=== PATIENT | female | born 1955 | race Caucasian/White ===

== ENCOUNTER 2017-02-20 11:22 | Inpatient (IN) | payer OTHER ==
[~2017-02-20] VITALS: Ht 157.5 cm; Wt 74.2 kg
[~2017-02-20 11:22] MED LIST: ACET1TAB40 PO; HYDR-3612; IBUP-1542 PO
[2017-02-20] MEDS ORDERED: SOD CHLORIDE 0.9% 500 ML IV STA (11:23)
[2017-02-20] MEDS ORDERED: LORAZEPAM 2 MG INJ IV STA (11:23)
--- NOTE | 2017-02-20 11:38 | ERD ---
ER Documentation Chief Complaint Chief Complaint Possible seizure HPI This is a 61-year-old female with a history of chronic pain who presents to the emergency room with possible seizure. History is somewhat limited as family is not readily available. It appears the patient had a witnessed seizure. She was speaking with the family member at home and collapse of the ground was shaking of the upper and lower extremities. Per EMS the patient was postictal upon arrival with gradual improvement through transit. Her Accu-Chek in the field was normal. The patient did not have any significant head trauma. The patient denies any headache chest pain or shortness of breath. She is somewhat tearful upon arrival. She has never had a seizure before per family member. No recent drugs or alcohol per patient. No recent fever or illness per EMS and family report. ROS All systems reviewed and are negative except as per history of present illness. Medications Home Meds Reported Medications Tramadol HCl (Tramadol HCl) 50 Mg Tablet, 50 MG PO BID Y for PAIN, #60 TAB 02/20/17 Discontinued Reported Medications Hydrocodone Bit-Acetaminophen* ([place]*) 1 Tab Tab 07/31/09 Discontinued Scripts Acetaminophen-Codeine* (Acetaminophen-Cod #3*) 300-30 Mg Tab, 1 TAB PO Q4H Y for PAIN, #14 TAB Prov:BONITA AGUILAR MD 03/03/15 Ibuprofen* (Motrin*) 600 Mg Tab, 600 MG PO Q6, #20 TAB Prov:BONITA AGUILAR MD 03/03/15 Allergies Allergies: Coded Allergies: No Known Allergies (Verified Allergy, Mild, 02/20/17) PMhx/Soc History of Surgery: Yes (ankle, hysterectomy, carpal tunnel.) Anesthesia Reaction: No Hx Neurological Disorder: No Hx Respiratory Disorders: No Hx Cardiac Disorders: Yes (HTN) Hx Psychiatric Problems: No Hx Miscellaneous Medical Probl: No Hx Alcohol Use: No Hx Substance Use: No Hx Tobacco Use: No FmHx Family History: No diabetes Physical Exam Vitals Vital Signs Date Time Temp Pulse Resp B/P Pulse Ox O2 Delivery O2 Flow Rate FiO2 02/20/17 11:33 98.3 81 18 158/110 92 Physical Exam General: Well developed, well nourished, no acute distress, somewhat tearful Head: Small left occipital hematoma approximately 1 cm, no abrasion or laceration Eyes: Pupils equally reactive, EOM intact ENT: Moist mucous membranes Neck: Supple, no lymphadenopathy, No midline tenderness, deformities, step-offs to the cervical spine, full active and passive range of motion without midline pain. Respiratory: Lungs clear bilaterally, no distress Cardiovascular: RRR, no murmurs, rubs, or gallops Abdominal: Soft, non-tender, non-distended, no peritoneal signs : Deferred MSK: No edema, no unilateral swelling, 5/5 strength Neurologic: Alert and oriented to be postictal as she is only oriented to person and place, moving all extremities, normal speech, no focal weakness, no cerebellar signs Skin: No rash Psych: Slightly labile mood, postictal Result Diagram: 02/20/17 1144 02/20/17 1144 Results 24 hrs Laboratory Tests Test 02/20/17 11:44 White Blood Count 5.810^3/ul Red Blood Count 4.4210^6/ul Hemoglobin 14.2g/dl Hematocrit 42.1% Mean Corpuscular Volume 95.2fl Mean Corpuscular Hemoglobin 32.1pg Mean Corpuscular Hemoglobin Concent 33.7g/dl Red Cell Distribution Width 12.2% Platelet Count 63633^3/UL Mean Platelet Volume 10.4fl Neutrophils % 39.0% Lymphocytes % 46.6% Monocytes % 9.8% Eosinophils % 3.8% Basophils % 0.5% Nucleated Red Blood Cells % 0.0/100WBC Neutrophils # 2.310^3/ul Lymphocytes # 2.710^3/ul Monocytes # 0.610^3/ul Eosinophils # 0.210^3/ul Basophils # 0.010^3/ul Nucleated Red Blood Cells # 0.010^3/ul Prothrombin Time 13.3Sec Prothrombin Time Ratio 1.0 INR International Normalized Ratio 1.01 Activated Partial Thromboplast Time 23.5Sec Sodium Level 141mmol/L Potassium Level 3.7mmol/L Chloride Level 102mmol/L Carbon Dioxide Level 25mmol/L Anion Gap 18 Blood Urea Nitrogen 13mg/dl Creatinine 0.61mg/dl Glucose Level 115mg/dl Calcium Level 9.0mg/dl Troponin I < 0.012ng/ml Ethyl Alcohol Level < 10.0mg/dl Current Medications Medications (Trade) Dose Ordered Sig/Christy Route PRN Reason Start Time Stop Time Status Last Admin Dose Admin Sodium Chloride (NS) 500 ml @ 500 mls/hr Q1H STAT IV 02/20/17 11:23 02/20/17 12:22 DC 02/20/17 11:32 Lorazepam (Ativan) 0.5 mg ONCE STAT IV 02/20/17 11:23 02/20/17 11:25 DC 02/20/17 11:32 Procedures/MDM EKG, MONITORS, & DIAGNOSTIC IMAGING: EKG: I reviewed and interpreted a 12-lead EKG. Rhythm: Normal sinus rhythm Ectopy: None Intervals: No abnormalities ST segments: No elevations or depressions T waves: No contiguous inversions Chest x-ray: I reviewed and interpreted a 1 view of the chest Mediastinum: No enlargement Cardiac silhouette: No cardiomegaly Airspace: Clear lung galindo bilaterally without evidence of pneumothorax Bones: No evidence of fracture CT brain: IMPRESSION: 1. No intracranial hemorrhage. 2. Cavum septum pellucidum, a normal variant. 3. Otherwise unremarkable noncontrast CT scan of the brain. RPTAT: QQ LAB INTERPRETATION: No electrolyte disturbance or signs of infection, negative alcohol, urine drug screen pending. MEDICAL DECISION MAKING: The patient presents to the emergency room for evaluation of possible seizure. The family is not here however the patient does appear to be somewhat postictal suggesting seizure. It does not appear the patient has a history of seizure. She has multiple visits for chronic pain but otherwise no recent visits to the emergency room. The patient is afebrile. Her Accu-Chek in the field was normal. She has evidence of a small occipital parietal hematoma on the left side of the scalp. Her C-spine was cleared clinically. The patient is able to localize. It is concerning that this 61-year-old female has a new onset of seizure, this raises the concern for possible intracranial process such as hemorrhage, mass. She is afebrile without systemic signs or symptoms concerning for infection therefore meningitis is unlikely. Will need a stat CT brain, inpatient hospitalization for EEG and likely MRI imaging. At this point no indication for lumbar puncture in the emergency room. She has a nonfocal exam currently and is moving all extremities with no focal deficits. ER COURSE: Upon arrival a phone call was made to CAT scan to make the patient CT brain stat , seizure precautions were initiated and the patient was given a small dose of 0.5 mg of Ativan for seizure prophylaxis and anxiolysis. The patient has since returned to baseline. She is resting comfortably. Her laboratory testing and diagnostic imaging is unrevealing. She does note slightly decreased sleep over the last several weeks. This could be her trigger. However, given her age, new onset seizure this is concerning for possible intracranial process. Patient will benefit from MRI, EEG and this necessitates inpatient hospitalization. She is maintained on seizure precautions. I kept the patient and/or family informed of laboratory and diagnostic imaging results throughout the emergency room course. DISPOSITION PLAN: Telemetry admission for monitoring of seizure disorder CONSULTATION: Accepting care team and consultations: I discussed the current laboratory data, diagnostic imaging and emergency care provided. Admitting team: Dr. Landaverde Admitting team indication: Insurance directed, capitated to [facility], however no call back within greater than 45-60 minutes despite multiple phone calls from registration. Departure Diagnosis: Primary Impression: New onset seizure Condition: Stable PERLA CHAU MD Feb 20, 2017 11:38
--- NOTE | 2017-02-20 12:00 | RADRPT ---
PROCEDURE: CT Brain without contrast. CLINICAL INDICATION: Seizure. TECHNIQUE: A CT of the brain without contrast was performed utilizing axial sections from the skul l base through the vertex. The patient was scanned without intravenous contrast enhancement. Sagitta l and coronal reformatted images were obtained using the data from the axial images. Total exam DLP is 720.23 mGy-cm. CTDIvol is 43.27 mGy. One or more of the following dose reduction techniques we re used: Automated exposure control, adjustment of the mA and/or kV according to patient size, use o f iterative reconstruction technique. COMPARISON: None available FINDINGS: There is normal pablo-white matter differentiation. There is a cavum septum pellucidum, a normal variant. The ventricles and cisterns are otherwise norm al. There is no intracranial hemorrhage or space-occupying lesion. There is no skull fracture or lytic lesion. IMPRESSION: 1. No intracranial hemorrhage. 2. Cavum septum pellucidum, a normal variant. 3. Otherwise unremarkable noncontrast CT scan of the brain. RPTAT: QQ .Kodak Vincent MD, Date Time Electronically viewed and signed by .Kodak Vincent MD, on 02/20/2017 12:00 .R/
--- NOTE | 2017-02-20 12:09 | RADRPT ---
PROCEDURE: XR Chest. CLINICAL INDICATION: chest pain, seizure TECHNIQUE: Single frontal view of the chest was obtained COMPARISON: None FINDINGS: The heart and mediastinum are within normal limits. The lungs are clear. There is no pleural effusion or pneumothorax. RPTAT: AA IMPRESSION: No acute disease. .Andrzej Matthews MD, MD Date Time Electronically viewed and signed by .Andrzej Matthews MD, on 02/20/2017 12:09 .S/
[2017-02-20] MEDS ORDERED: TRAM50TA2 PO (12:24)
[2017-02-20 14:30] VITALS: TEMP 98.1
--- NOTE | 2017-02-20 15:21 | HP ---
Date/Time of Note Date/Time of Note DATE: 02/20/17 TIME: 15:08 Assessment/Plan VTE Prophylaxis VTE Prophylaxis Intervention: SCD's Assessment/Plan Chief Complaint/Hosp Course Assessment and plan 1. New onset seizure. Follow-up MRI of the brain. CT scan of the brain with no acute findings. Follow-up on EEG. Neurologist consultation to be obtained. 2. History of essential hypertension. Will provide with antihypertensives and adjust needed 3. History of migraine. Will provide with analgesics. Admission process time for than 40 minutes Discussed plan of care with Dr. Menendez Problems: HPI/ROS Admit Date/Time Admit Date/Time Hx of Present Illness This is a 61 year old female with history of migraines, back pain, hypertension , hysterectomy continue to [facility] after having witnessed supposed seizure. Patient reports no previous history of seizures or any other history of stroke or any previous history of syncope. She reportedly was sitting on her couch when she reportedly "blacked out". She was found by her daughter who stated she found her mother shaking. As such was brought to [facility] for further evaluation.CT scan of the brain showed no intracranial hemorrhage otherwise no remarkable finding. BMP and CBC otherwise unremarkable. Vital signs remained stable. She reports being in her normal state of health able to relate walk and carry out her regular activities of daily living prior to this incident. She reports only having some mild headache at this time likely postictal. We will evaluate her for the aformentiond issues. ROS 12 point review of systems obtained entirely negative except as mentioned in the history of present illness PMH/Family/Social Past Medical History Medical/surgical history migraines, back pain, hypertensin, hysterectomy, right ankle surgery Family History Significant Family History: no pertinent family hx Social History Alcohol Use: none Smoking Status: Never smoker Drug Use: none Exam/Review of Systems Vital Signs Vitals Vital Signs Date Time Temp Pulse Resp B/P Pulse Ox O2 Delivery O2 Flow Rate FiO2 02/20/17 14:30 98.1 74 18 137/102 99 Room Air Exam Constitutional: alert, oriented Psych: nl mood/affect Head: normocephalic Eyes: nl conjunctiva Neck: non-tender, supple Respiratory: normal air movement Cardiovascular: regular rate and rhythm Gastrointestinal: non-tender, soft Musculoskeletal: nl extremities to inspection, nl gait and stance Extremities: normal pulses Neurological: ASSOCIATE PRODUCER II-XII intact, nl mental status, nl speech Skin: nl turgor Labs Result Diagram: 02/20/17 1144 02/20/17 1144 IAN WALLS Feb 20, 2017 15:18
[2017-02-20] MEDS ORDERED: ONDANSETRON 4 MG INJ IV PRN (15:30)
[2017-02-20] MEDS ORDERED: ACETAMINOPHEN 650 MG SUPP PR PRN (15:30)
[2017-02-20] MEDS ORDERED: DOCUSATE SODIUM 100 MG CAP PO PRN (15:30)
[2017-02-20] MEDS ORDERED: BISACODYL 10 MG SUPP PR PRN (15:30)
[2017-02-20] MEDS ORDERED: MAGNESIUM HYDROXIDE 30ML CUP PO PRN (15:30)
[2017-02-20] MEDS ORDERED: morphine 2 MG INJ IV PRN (15:30)
[2017-02-20] MEDS ORDERED: NACL 0.9% 3 ML SYG IV SCH (15:30)
[2017-02-20] MEDS ORDERED: ACETAMINOPHEN 325 MG TAB PO PRN (15:30)
[2017-02-20] MEDS ORDERED: HYDROCODONE/APAP (5/325) TAB PO PRN (15:30)
[2017-02-20 17:05] VITALS: PULSE 70
[2017-02-20 17:12] VITALS: BMI 31.9
[2017-02-20 19:20] VITALS: BP 156/82; PULSE 76; RESP 18
[2017-02-20 20:01] VITALS: PULSE 72
[2017-02-20 22:50] VITALS: BP 146/89; PULSE 69; RESP 20; Ht 157.5 cm; Wt 74.2 kg
[2017-02-20 22:56] VITALS: PULSE 73
[2017-02-21] VITALS (12 sets, daily range): BP systolic 116–146; BP diastolic 74–89; PULSE 16–73; RESP 18–20
[2017-02-21] MEDS: PANTOPRAZOLE 40 MG INJ IV SCH (06:32)
--- NOTE | 2017-02-21 10:30 | PN ---
Date/Time of Note Date/Time of Note DATE: 02/21/17 TIME: 10:26 Assessment/Plan VTE Prophylaxis VTE Prophylaxis Intervention: SCD's Lines/Catheters IV [facility] Saline Lock Urinary Cath still in place: No Assessment/Plan Chief Complaint/Hosp Course Assessment and plan 1. New onset seizure. MRI of the brain pending. CT scan of the brain with no acute findings. Follow-up on EEG. Neurologist eval pending 2. History of essential hypertension. Will provide with antihypertensives and adjust needed 3. History of migraine. Will provide with analgesics. DISPO/PLAN: follow up mri brain. neurologist to follow. continue inpatient monitoring Discussed plan of care with Dr. Menendez Problems: Subjective 24 Hr Interval Summary Free Text/Dictation no s/s of distress Exam/Review of Systems Vital Signs Vitals Vital Signs Date Time Temp Pulse Resp B/P Pulse Ox O2 Delivery O2 Flow Rate FiO2 02/21/17 08:20 60 02/21/17 07:22 98.4 20 120/78 95 02/20/17 22:50 Room Air Exam Constitutional: alert, oriented Psych: nl mood/affect Head: normocephalic Eyes: nl conjunctiva Neck: non-tender, supple Respiratory: normal air movement Cardiovascular: regular rate and rhythm Gastrointestinal: non-tender, soft Musculoskeletal: nl extremities to inspection, nl gait and stance Extremities: normal pulses Neurological: GROUND HAND II-XII intact, nl mental status, nl speech Skin: nl turgor Results Result Diagram: 02/21/17 0521 02/21/17 0521 Results 24 hrs Laboratory Tests Test 02/20/17 11:44 02/21/17 05:21 White Blood Count 5.8 5.1 Red Blood Count 4.42 4.12 L Hemoglobin 14.2 13.2 Hematocrit 42.1 40.0 Mean Corpuscular Volume 95.2 97.1 Mean Corpuscular Hemoglobin 32.1 32.0 Mean Corpuscular Hemoglobin Concent 33.7 33.0 Red Cell Distribution Width 12.2 12.4 Platelet Count 201 191 Mean Platelet Volume 10.4 10.6 H Neutrophils % 39.0 39.2 Lymphocytes % 46.6 44.4 Monocytes % 9.8 12.3 H Eosinophils % 3.8 3.1 Basophils % 0.5 0.6 Nucleated Red Blood Cells % 0.0 0.0 Neutrophils # 2.3 2.0 Lymphocytes # 2.7 2.3 Monocytes # 0.6 0.6 Eosinophils # 0.2 0.2 Basophils # 0.0 0.0 Nucleated Red Blood Cells # 0.0 0.0 Prothrombin Time 13.3 Prothrombin Time Ratio 1.0 INR International Normalized Ratio 1.01 Activated Partial Thromboplast Time 23.5 L Sodium Level 141 142 Potassium Level 3.7 4.6 Chloride Level 102 104 Carbon Dioxide Level 25 31 Anion Gap 18 H 12 Blood Urea Nitrogen 13 12 Creatinine 0.61 0.68 Glucose Level 115 75 # Calcium Level 9.0 9.3 Troponin I < 0.012 Ethyl Alcohol Level < 10.0 Hemoglobin A1c 5.2 Phosphorus Level 4.0 Magnesium Level 1.9 Total Bilirubin 0.4 Direct Bilirubin 0.00 Indirect Bilirubin 0.4 Aspartate Amino Transf (AST/SGOT) 40 Alanine Aminotransferase (ALT/SGPT) 38 Alkaline Phosphatase 74 Total Protein 7.9 Albumin 3.5 Globulin 4.40 H Albumin/Globulin Ratio 0.79 Triglycerides Level 54 Cholesterol Level 133 LDL Cholesterol, Calculated 83 HDL Cholesterol 39 Cholesterol/HDL Ratio 3.4 Thyroid Stimulating Hormone (TSH) 0.750 Free Thyroxine Index 2.51 Thyroxine (T4) 8.3 Triiodothyronine (T3) Uptake 30.3 Medications Medications Current Medications Ondansetron HCl (Zofran Inj) 4 mg Q6H PRN IV NAUSEA AND/OR VOMITING; Start at 15:30 Acetaminophen (Tylenol Tab) 650 mg Q6H PRN PO PAIN LEVEL 1-3 OR FEVER Last administered on 02/21/17t 09:19; Admin Dose 650 MG; Start 02/20/17 at 15:30 Acetaminophen (Tylenol Supp) 650 mg Q6H PRN [place] PAIN LEVEL 1-3 OR FEVER; Start 02/20/17 at 15:30 Acetaminophen/ Hydrocodone Bitart ([place] (5/325)) 1 tab Q6H PRN PO MODERATE PAIN LEVEL 4-6; Start 02/20/17 at 15:30 Acetaminophen/ Hydrocodone Bitart ([place] (5/325)) 2 tab Q6H PRN PO SEVERE PAIN LEVEL 7-10; Start 02/20/17 at 15:30 Morphine Sulfate (morphine) 2 mg Q4H PRN IV SEVERE PAIN LEVEL 7-10; Start at 15:30 Docusate Sodium (Colace) 100 mg Q12H PRN PO CONSTIPATION; Start 02/20/17 at 15 :30 Magnesium Hydroxide (Milk Of Mag) 30 ml DAILY PRN PO CONSTIPATION; Start 02/20 at 15:30 Bisacodyl (Dulcolax Supp) 10 mg DAILY PRN [place] CONSTIPATION; Start 02/20/17 at 15:30 Pantoprazole (Protonix Iv) 40 mg DAILY@06 IV Last administered on 02/21/17t 06 :32; Admin Dose 40 MG; Start 02/21/17 at 06:00 IAN WALLS Feb 21, 2017 10:30
--- NOTE | 2017-02-21 10:30 | PN ---
Date/Time of Note Date/Time of Note DATE: 02/21/17 TIME: 10:26 Assessment/Plan VTE Prophylaxis VTE Prophylaxis Intervention: SCD's Lines/Catheters IV [facility] Saline Lock Urinary Cath still in place: No Assessment/Plan Chief Complaint/Hosp Course Assessment and plan 1. New onset seizure. MRI of the brain pending. CT scan of the brain with no acute findings. Follow-up on EEG. Neurologist eval pending 2. History of essential hypertension. Will provide with antihypertensives and adjust needed 3. History of migraine. Will provide with analgesics. DISPO/PLAN: follow up mri brain. neurologist to follow. continue inpatient monitoring Discussed plan of care with Dr. Menendez Problems: Subjective 24 Hr Interval Summary Free Text/Dictation no s/s of distress Exam/Review of Systems Vital Signs Vitals Vital Signs Date Time Temp Pulse Resp B/P Pulse Ox O2 Delivery O2 Flow Rate FiO2 02/21/17 08:20 60 02/21/17 07:22 98.4 20 120/78 95 02/20/17 22:50 Room Air Exam Constitutional: alert, oriented Psych: nl mood/affect Head: normocephalic Eyes: nl conjunctiva Neck: non-tender, supple Respiratory: normal air movement Cardiovascular: regular rate and rhythm Gastrointestinal: non-tender, soft Musculoskeletal: nl extremities to inspection, nl gait and stance Extremities: normal pulses Neurological: KNITTER MACHINE II-XII intact, nl mental status, nl speech Skin: nl turgor Results Result Diagram: 02/21/17 0521 02/21/17 0521 Results 24 hrs Laboratory Tests Test 02/20/17 11:44 02/21/17 05:21 White Blood Count 5.8 5.1 Red Blood Count 4.42 4.12 L Hemoglobin 14.2 13.2 Hematocrit 42.1 40.0 Mean Corpuscular Volume 95.2 97.1 Mean Corpuscular Hemoglobin 32.1 32.0 Mean Corpuscular Hemoglobin Concent 33.7 33.0 Red Cell Distribution Width 12.2 12.4 Platelet Count 201 191 Mean Platelet Volume 10.4 10.6 H Neutrophils % 39.0 39.2 Lymphocytes % 46.6 44.4 Monocytes % 9.8 12.3 H Eosinophils % 3.8 3.1 Basophils % 0.5 0.6 Nucleated Red Blood Cells % 0.0 0.0 Neutrophils # 2.3 2.0 Lymphocytes # 2.7 2.3 Monocytes # 0.6 0.6 Eosinophils # 0.2 0.2 Basophils # 0.0 0.0 Nucleated Red Blood Cells # 0.0 0.0 Prothrombin Time 13.3 Prothrombin Time Ratio 1.0 INR International Normalized Ratio 1.01 Activated Partial Thromboplast Time 23.5 L Sodium Level 141 142 Potassium Level 3.7 4.6 Chloride Level 102 104 Carbon Dioxide Level 25 31 Anion Gap 18 H 12 Blood Urea Nitrogen 13 12 Creatinine 0.61 0.68 Glucose Level 115 75 # Calcium Level 9.0 9.3 Troponin I < 0.012 Ethyl Alcohol Level < 10.0 Hemoglobin A1c 5.2 Phosphorus Level 4.0 Magnesium Level 1.9 Total Bilirubin 0.4 Direct Bilirubin 0.00 Indirect Bilirubin 0.4 Aspartate Amino Transf (AST/SGOT) 40 Alanine Aminotransferase (ALT/SGPT) 38 Alkaline Phosphatase 74 Total Protein 7.9 Albumin 3.5 Globulin 4.40 H Albumin/Globulin Ratio 0.79 Triglycerides Level 54 Cholesterol Level 133 LDL Cholesterol, Calculated 83 HDL Cholesterol 39 Cholesterol/HDL Ratio 3.4 Thyroid Stimulating Hormone (TSH) 0.750 Free Thyroxine Index 2.51 Thyroxine (T4) 8.3 Triiodothyronine (T3) Uptake 30.3 Medications Medications Current Medications Ondansetron HCl (Zofran Inj) 4 mg Q6H PRN IV NAUSEA AND/OR VOMITING; Start at 15:30 Acetaminophen (Tylenol Tab) 650 mg Q6H PRN PO PAIN LEVEL 1-3 OR FEVER Last administered on 02/21/17t 09:19; Admin Dose 650 MG; Start 02/20/17 at 15:30 Acetaminophen (Tylenol Supp) 650 mg Q6H PRN [place] PAIN LEVEL 1-3 OR FEVER; Start 02/20/17 at 15:30 Acetaminophen/ Hydrocodone Bitart ([place] (5/325)) 1 tab Q6H PRN PO MODERATE PAIN LEVEL 4-6; Start 02/20/17 at 15:30 Acetaminophen/ Hydrocodone Bitart ([place] (5/325)) 2 tab Q6H PRN PO SEVERE PAIN LEVEL 7-10; Start 02/20/17 at 15:30 Morphine Sulfate (morphine) 2 mg Q4H PRN IV SEVERE PAIN LEVEL 7-10; Start at 15:30 Docusate Sodium (Colace) 100 mg Q12H PRN PO CONSTIPATION; Start 02/20/17 at 15 :30 Magnesium Hydroxide (Milk Of Mag) 30 ml DAILY PRN PO CONSTIPATION; Start 02/20 at 15:30 Bisacodyl (Dulcolax Supp) 10 mg DAILY PRN [place] CONSTIPATION; Start 02/20/17 at 15:30 Pantoprazole (Protonix Iv) 40 mg DAILY@06 IV Last administered on 02/21/17t 06 :32; Admin Dose 40 MG; Start 02/21/17 at 06:00 IAN WALLS Feb 21, 2017 10:30
[2017-02-21] MEDS: LEVETIRACETAM 500 MG TAB PO SCH ×2 (10:56→21:13)
--- NOTE | 2017-02-21 15:14 | RADRPT ---
PROCEDURE: MRI Brain without contrast. CLINICAL INDICATION: Seizure TECHNIQUE: Multiplanar MRI of the brain without contrast was performed on a 3.0 T scanner with the following sequences obtained: T1-weighted, T2-weighted/FLAIR, diffusion weighted (with ADC map), GR E. COMPARISON: None available FINDINGS: There are mild patient motion related artifacts. No acute/recent ischemic infarction or intracranial hemorrhage / blood degradation products are identified. No extra-axial fluid collection is seen. There is no mass effect. No midline shift is identified. The ventricles and sulci are within normal limits for size and configuration. Incidentally noted is a cavum septum pellucidum and vergae. Mild areas of increased T2 / FLAIR signal intensity are present in the periventricular and deep whit e matter, nonspecific but likely related to chronic small vessel ischemic changes. The mesial tempo ral lobe structures are grossly symmetric without signal abnormality , or volume loss seen. Partly e mpty sella is noted. Flow voids are identified in the proximal intracranial arteries and dural sinuses suggesting patency . Severe right maxillary sinus mucosal thickening is seen. IMPRESSION: 1. No evidence of acute intracranial pathology. 2. Mild chronic small vessel ischemic changes. RPTAT: AA .Carlos Gross MD, Date Time Electronically viewed and signed by .Carlos Gross MD, on 02/21/2017 15:13 .O/
--- NOTE | 2017-02-21 16:14 | CONS ---
Date/Time of Note Date/Time of Note DATE: 02/21/17 TIME: 16:09 Assessment/Plan Assessment/Plan Chief Complaint/Hosp Course New onset seizure activity Problems: Additional Assessment/Plan Patient is a 61 year old female with history of migraines, back pain, hypertension, hysterectomy continue to [facility] after having witnessed possible seizure. Patient reports no previous history of seizures or any other history of stroke or any previous history of syncope. She reportedly was sitting on her couch when she reportedly "blacked out". She was found by her daughter who stated she found her mother shaking. As such was brought to [facility] for further evaluation.CT scan of the brain showed no intracranial hemorrhage otherwise no remarkable finding. She reported having some mild headache at this time likely postictal. She has no recurrence of similar activity. Examination is nonfocal. She apparently had new onset of seizures. Plan 1 MRI of the brain 2 EEG 3 seizure precautions 4 continue Keppra 5 will follow Consultation Date/Type/Reason Admit Date/Time Date of Consultation: Feb 21, 2017 Type of Consultation: Neurology Reason for Consultation New-onset seizure Referring Provider: IAN WALLS Hx of Present Illness Patient is a 61 year old female with history of migraines, back pain, hypertension, hysterectomy continue to [facility] after having witnessed possible seizure. Patient reports no previous history of seizures or any other history of stroke or any previous history of syncope. She reportedly was sitting on her couch when she reportedly "blacked out". She was found by her daughter who stated she found her mother shaking. As such was brought to [facility] for further evaluation.CT scan of the brain showed no intracranial hemorrhage otherwise no remarkable finding. She reported having some mild headache at this time likely postictal. She has no recurrence of similar activity. Constitutional: no complaints Eyes: no complaints ENT: no complaints Respiratory: no complaints Cardiovascular: no complaints Gastrointestinal: no complaints Genitourinary: no complaints Musculoskeletal: no complaints Skin: no complaints Neurologic: seizure Endocrine: no complaints Lymphatic: no complaints Psychological: nl mood/affect, no complaints Immunologic: no complaints Social History Alcohol Use: none Smoking Status: Never smoker Drug Use: none Exam/Review of Systems Vital Signs Vitals Vital Signs Date Time Temp Pulse Resp B/P Pulse Ox O2 Delivery O2 Flow Rate FiO2 02/21/17 15:05 98.5 65 20 119/77 94 02/20/17 22:50 Room Air Exam Constitutional: alert, oriented, well developed Psych: nl mood/affect, no complaints Head: atraumatic, normocephalic Eyes: EOMI, nl conjunctiva, nl lids, nl sclera ENMT: mucosa pink and moist, nl external ears & nose, nl lips & teeth, nl nasal mucosa & septum Neck: non-tender, supple Respiratory: clear to auscultation, normal air movement Cardiovascular: nl pulses, regular rate and rhythm Gastrointestinal: nl liver, spleen, non-tender, soft Extremities: normal pulses Neurological: CANE CUTTER II-XII intact, nl mental status, nl speech, nl strength Skin: nl turgor Results Result Diagram: 02/21/1752002/21/17520 Results 24 hrs Laboratory Tests Test 02/21/17 05:21 White Blood Count 5.1 Red Blood Count 4.12 L Hemoglobin 13.2 Hematocrit 40.0 Mean Corpuscular Volume 97.1 Mean Corpuscular Hemoglobin 32.0 Mean Corpuscular Hemoglobin Concent 33.0 Red Cell Distribution Width 12.4 Platelet Count 191 Mean Platelet Volume 10.6 H Neutrophils % 39.2 Lymphocytes % 44.4 Monocytes % 12.3 H Eosinophils % 3.1 Basophils % 0.6 Nucleated Red Blood Cells % 0.0 Neutrophils # 2.0 Lymphocytes # 2.3 Monocytes # 0.6 Eosinophils # 0.2 Basophils # 0.0 Nucleated Red Blood Cells # 0.0 Sodium Level 142 Potassium Level 4.6 Chloride Level 104 Carbon Dioxide Level 31 Anion Gap 12 Blood Urea Nitrogen 12 Creatinine 0.68 Glucose Level 75 # Hemoglobin A1c 5.2 Calcium Level 9.3 Phosphorus Level 4.0 Magnesium Level 1.9 Total Bilirubin 0.4 Direct Bilirubin 0.00 Indirect Bilirubin 0.4 Aspartate Amino Transf (AST/SGOT) 40 Alanine Aminotransferase (ALT/SGPT) 38 Alkaline Phosphatase 74 Total Protein 7.9 Albumin 3.5 Globulin 4.40 H Albumin/Globulin Ratio 0.79 Triglycerides Level 54 Cholesterol Level 133 LDL Cholesterol, Calculated 83 HDL Cholesterol 39 Cholesterol/HDL Ratio 3.4 Thyroid Stimulating Hormone (TSH) 0.750 Free Thyroxine Index 2.51 Thyroxine (T4) 8.3 Triiodothyronine (T3) Uptake 30.3 Medications Medications Current Medications Ondansetron HCl (Zofran Inj) 4 mg Q6H PRN IV NAUSEA AND/OR VOMITING; Start at 15:30 Acetaminophen (Tylenol Tab) 650 mg Q6H PRN PO PAIN LEVEL 1-3 OR FEVER Last administered on 02/21/17 09:19; Admin Dose 650 MG; Start 02/20/17 at 15:30 Acetaminophen (Tylenol Supp) 650 mg Q6H PRN IN PAIN LEVEL 1-3 OR FEVER; Start 02/20/17 at 15:30 Acetaminophen/ Hydrocodone Bitart ([place] (5/325)) 1 tab Q6H PRN PO MODERATE PAIN LEVEL 4-6; Start 02/20/17 at 15:30 Acetaminophen/ Hydrocodone Bitart ([place] (5/325)) 2 tab Q6H PRN PO SEVERE PAIN LEVEL 7-10; Start 02/20/17 at 15:30 Morphine Sulfate (morphine) 2 mg Q4H PRN IV SEVERE PAIN LEVEL 7-10; Start at 15:30 Docusate Sodium (Colace) 100 mg Q12H PRN PO CONSTIPATION; Start 02/20/17 at 15 :30 Magnesium Hydroxide (Milk Of Mag) 30 ml DAILY PRN PO CONSTIPATION; Start 02/20 at 15:30 Bisacodyl (Dulcolax Supp) 10 mg DAILY PRN [place] CONSTIPATION; Start 02/20/17 at 15:30 Pantoprazole (Protonix Iv) 40 mg DAILY@06 IV Last administered on 02/21/17 06 :32; Admin Dose 40 MG; Start 02/21/17 at 06:00 Levetiracetam (Keppra) 500 mg BID PO Last administered on 02/21/17 10:56; Admin Dose 500 MG; Start 02/21/17 at 10:30 ALMA CASTELLANOS MD Feb 21, 2017 16:14
--- NOTE | 2017-02-21 16:14 | CONS ---
Date/Time of Note Date/Time of Note DATE: 02/21/17 TIME: 16:09 Assessment/Plan Assessment/Plan Chief Complaint/Hosp Course New onset seizure activity Problems: Additional Assessment/Plan Patient is a 61 year old female with history of migraines, back pain, hypertension, hysterectomy continue to [facility] after having witnessed possible seizure. Patient reports no previous history of seizures or any other history of stroke or any previous history of syncope. She reportedly was sitting on her couch when she reportedly "blacked out". She was found by her daughter who stated she found her mother shaking. As such was brought to [facility] for further evaluation.CT scan of the brain showed no intracranial hemorrhage otherwise no remarkable finding. She reported having some mild headache at this time likely postictal. She has no recurrence of similar activity. Examination is nonfocal. She apparently had new onset of seizures. Plan 1 MRI of the brain 2 EEG 3 seizure precautions 4 continue Keppra 5 will follow Consultation Date/Type/Reason Admit Date/Time Date of Consultation: Feb 21, 2017 Type of Consultation: Neurology Reason for Consultation New-onset seizure Referring Provider: IAN WALLS Hx of Present Illness Patient is a 61 year old female with history of migraines, back pain, hypertension, hysterectomy continue to [facility] after having witnessed possible seizure. Patient reports no previous history of seizures or any other history of stroke or any previous history of syncope. She reportedly was sitting on her couch when she reportedly "blacked out". She was found by her daughter who stated she found her mother shaking. As such was brought to [facility] for further evaluation.CT scan of the brain showed no intracranial hemorrhage otherwise no remarkable finding. She reported having some mild headache at this time likely postictal. She has no recurrence of similar activity. Constitutional: no complaints Eyes: no complaints ENT: no complaints Respiratory: no complaints Cardiovascular: no complaints Gastrointestinal: no complaints Genitourinary: no complaints Musculoskeletal: no complaints Skin: no complaints Neurologic: seizure Endocrine: no complaints Lymphatic: no complaints Psychological: nl mood/affect, no complaints Immunologic: no complaints Social History Alcohol Use: none Smoking Status: Never smoker Drug Use: none Exam/Review of Systems Vital Signs Vitals Vital Signs Date Time Temp Pulse Resp B/P Pulse Ox O2 Delivery O2 Flow Rate FiO2 02/21/17 15:05 98.5 65 20 119/77 94 02/20/17 22:50 Room Air Exam Constitutional: alert, oriented, well developed Psych: nl mood/affect, no complaints Head: atraumatic, normocephalic Eyes: EOMI, nl conjunctiva, nl lids, nl sclera ENMT: mucosa pink and moist, nl external ears & nose, nl lips & teeth, nl nasal mucosa & septum Neck: non-tender, supple Respiratory: clear to auscultation, normal air movement Cardiovascular: nl pulses, regular rate and rhythm Gastrointestinal: nl liver, spleen, non-tender, soft Extremities: normal pulses Neurological: HEADING AND PRIMING TOOL SETTER II-XII intact, nl mental status, nl speech, nl strength Skin: nl turgor Results Result Diagram: 02/21/1752002/21/17520 Results 24 hrs Laboratory Tests Test 02/21/17 05:21 White Blood Count 5.1 Red Blood Count 4.12 L Hemoglobin 13.2 Hematocrit 40.0 Mean Corpuscular Volume 97.1 Mean Corpuscular Hemoglobin 32.0 Mean Corpuscular Hemoglobin Concent 33.0 Red Cell Distribution Width 12.4 Platelet Count 191 Mean Platelet Volume 10.6 H Neutrophils % 39.2 Lymphocytes % 44.4 Monocytes % 12.3 H Eosinophils % 3.1 Basophils % 0.6 Nucleated Red Blood Cells % 0.0 Neutrophils # 2.0 Lymphocytes # 2.3 Monocytes # 0.6 Eosinophils # 0.2 Basophils # 0.0 Nucleated Red Blood Cells # 0.0 Sodium Level 142 Potassium Level 4.6 Chloride Level 104 Carbon Dioxide Level 31 Anion Gap 12 Blood Urea Nitrogen 12 Creatinine 0.68 Glucose Level 75 # Hemoglobin A1c 5.2 Calcium Level 9.3 Phosphorus Level 4.0 Magnesium Level 1.9 Total Bilirubin 0.4 Direct Bilirubin 0.00 Indirect Bilirubin 0.4 Aspartate Amino Transf (AST/SGOT) 40 Alanine Aminotransferase (ALT/SGPT) 38 Alkaline Phosphatase 74 Total Protein 7.9 Albumin 3.5 Globulin 4.40 H Albumin/Globulin Ratio 0.79 Triglycerides Level 54 Cholesterol Level 133 LDL Cholesterol, Calculated 83 HDL Cholesterol 39 Cholesterol/HDL Ratio 3.4 Thyroid Stimulating Hormone (TSH) 0.750 Free Thyroxine Index 2.51 Thyroxine (T4) 8.3 Triiodothyronine (T3) Uptake 30.3 Medications Medications Current Medications Ondansetron HCl (Zofran Inj) 4 mg Q6H PRN IV NAUSEA AND/OR VOMITING; Start at 15:30 Acetaminophen (Tylenol Tab) 650 mg Q6H PRN PO PAIN LEVEL 1-3 OR FEVER Last administered on 02/21/17 09:19; Admin Dose 650 MG; Start 02/20/17 at 15:30 Acetaminophen (Tylenol Supp) 650 mg Q6H PRN [place] PAIN LEVEL 1-3 OR FEVER; Start 02/20/17 at 15:30 Acetaminophen/ Hydrocodone Bitart ([place] (5/325)) 1 tab Q6H PRN PO MODERATE PAIN LEVEL 4-6; Start 02/20/17 at 15:30 Acetaminophen/ Hydrocodone Bitart ([place] (5/325)) 2 tab Q6H PRN PO SEVERE PAIN LEVEL 7-10; Start 02/20/17 at 15:30 Morphine Sulfate (morphine) 2 mg Q4H PRN IV SEVERE PAIN LEVEL 7-10; Start at 15:30 Docusate Sodium (Colace) 100 mg Q12H PRN PO CONSTIPATION; Start 02/20/17 at 15 :30 Magnesium Hydroxide (Milk Of Mag) 30 ml DAILY PRN PO CONSTIPATION; Start 02/20 at 15:30 Bisacodyl (Dulcolax Supp) 10 mg DAILY PRN [place] CONSTIPATION; Start 02/20/17 at 15:30 Pantoprazole (Protonix Iv) 40 mg DAILY@06 IV Last administered on 02/21/17 06 :32; Admin Dose 40 MG; Start 02/21/17 at 06:00 Levetiracetam (Keppra) 500 mg BID PO Last administered on 02/21/17 10:56; Admin Dose 500 MG; Start 02/21/17 at 10:30 ALMA CASTELLANOS MD Feb 21, 2017 16:14
[2017-02-22] VITALS (14 sets, daily range): BP systolic 128–167; BP diastolic 69–88; PULSE 40–65; RESP 16–20
[2017-02-22] MEDS: PANTOPRAZOLE 40 MG INJ IV SCH (05:14)
[2017-02-22] MEDS: HYDROCODONE/APAP (5/325) TAB PO PRN ×2 (08:19→20:52)
[2017-02-22] MEDS: LEVETIRACETAM 500 MG TAB PO SCH ×2 (08:22→20:51)
--- NOTE | 2017-02-22 13:01 | CONS ---
Date/Time of Note Date/Time of Note DATE: 02/22/17 TIME: 12:59 Consult Date/Type/Reason Admit Date/Time Feb 20, 2017 at 15:40 Initial Consult Date 02/21/17 Type of Consultation: Neurology Reason for Consultation seizure eval Ordering Provider: IAN WALLS Subjective no further seizure Objective Vital Signs Date Time Temp Pulse Resp B/P Pulse Ox O2 Delivery O2 Flow Rate FiO2 02/22/17 11:49 97.7 67 18 128/79 97 02/20/17 22:50 Room Air Intake and Output 02/21/17 02/21/17 02/22/17 15:00 23:00 07:00 Intake Total 300 ml 900 ml 400 ml Balance 300 ml 900 ml 400 ml Exam Constitutional: alert, oriented, well developed Psych: nl mood/affect, no complaints Head: atraumatic, normocephalic Eyes: EOMI, nl conjunctiva, nl lids, nl sclera ENMT: mucosa pink and moist, nl external ears & nose, nl lips & teeth, nl nasal mucosa & septum Neck: non-tender, supple Respiratory: clear to auscultation, normal air movement Cardiovascular: nl pulses, regular rate and rhythm Gastrointestinal: nl liver, spleen, non-tender, soft Extremities: normal pulses Neurological: AUTOMATIC FURNACE OPERATOR II-XII intact, nl mental status, nl speech, nl strength Skin: nl turgor Results/Medications Result Diagram: 02/21/1752002/21/17520 Medications Current Medications Ondansetron HCl (Zofran Inj) 4 mg Q6H PRN IV NAUSEA AND/OR VOMITING; Start at 15:30 Acetaminophen (Tylenol Tab) 650 mg Q6H PRN PO PAIN LEVEL 1-3 OR FEVER Last administered on 02/21/17 09:19; Admin Dose 650 MG; Start 02/20/17 at 15:30 Acetaminophen (Tylenol Supp) 650 mg Q6H PRN [place] PAIN LEVEL 1-3 OR FEVER; Start 02/20/17 at 15:30 Acetaminophen/ Hydrocodone Bitart ([place] (5/325)) 1 tab Q6H PRN PO MODERATE PAIN LEVEL 4-6 Last administered on 02/22/17 08:19; Admin Dose 1 TAB; Start 02/20/17 at 15:30 Acetaminophen/ Hydrocodone Bitart ([place] (5/325)) 2 tab Q6H PRN PO SEVERE PAIN LEVEL 7-10; Start 02/20/17 at 15:30 Morphine Sulfate (morphine) 2 mg Q4H PRN IV SEVERE PAIN LEVEL 7-10; Start at 15:30 Docusate Sodium (Colace) 100 mg Q12H PRN PO CONSTIPATION; Start 02/20/17 at 15 :30 Magnesium Hydroxide (Milk Of Mag) 30 ml DAILY PRN PO CONSTIPATION; Start 02/20 at 15:30 Bisacodyl (Dulcolax Supp) 10 mg DAILY PRN [place] CONSTIPATION; Start 02/20/17 at 15:30 Pantoprazole (Protonix Iv) 40 mg DAILY@06 IV Last administered on 02/22/17 05 :14; Admin Dose 40 MG; Start 02/21/17 at 06:00 Levetiracetam (Keppra) 500 mg BID PO Last administered on 02/22/17 08:22; Admin Dose 500 MG; Start 02/21/17 at 10:30 Assessment/Plan Chief Complaint/Hosp Course Patient is a 61 year old female with history of migraines, back pain, hypertension, hysterectomy continue to [facility] after having witnessed possible seizure. Patient reports no previous history of seizures or any other history of stroke or any previous history of syncope. She reportedly was sitting on her couch when she reportedly "blacked out". She was found by her daughter who stated she found her mother shaking. As such was brought to [facility] for further evaluation.CT scan of the brain showed no intracranial hemorrhage otherwise no remarkable finding. She reported having some mild headache at this time likely postictal. She has no recurrence of similar activity. Examination is nonfocal. She apparently had new onset of seizures. Plan MRI Brain unrevealing EEG pending c/w Keppra seizure precautions abstain from driving up to 6 mo per [place] state regulations Problems: KINJAL CABRERA MD Feb 22, 2017 13:01
--- NOTE | 2017-02-22 13:01 | CONS ---
Date/Time of Note Date/Time of Note DATE: 02/22/17 TIME: 12:59 Consult Date/Type/Reason Admit Date/Time Feb 20, 2017 at 15:40 Initial Consult Date 02/21/17 Type of Consultation: Neurology Reason for Consultation seizure eval Ordering Provider: IAN WALLS Subjective no further seizure Objective Vital Signs Date Time Temp Pulse Resp B/P Pulse Ox O2 Delivery O2 Flow Rate FiO2 02/22/17 11:49 97.7 67 18 128/79 97 02/20/17 22:50 Room Air Intake and Output 02/21/17 02/21/17 02/22/17 15:00 23:00 07:00 Intake Total 300 ml 900 ml 400 ml Balance 300 ml 900 ml 400 ml Exam Constitutional: alert, oriented, well developed Psych: nl mood/affect, no complaints Head: atraumatic, normocephalic Eyes: EOMI, nl conjunctiva, nl lids, nl sclera ENMT: mucosa pink and moist, nl external ears & nose, nl lips & teeth, nl nasal mucosa & septum Neck: non-tender, supple Respiratory: clear to auscultation, normal air movement Cardiovascular: nl pulses, regular rate and rhythm Gastrointestinal: nl liver, spleen, non-tender, soft Extremities: normal pulses Neurological: VARITYPE OPERATOR II-XII intact, nl mental status, nl speech, nl strength Skin: nl turgor Results/Medications Result Diagram: 02/21/1752002/21/17520 Medications Current Medications Ondansetron HCl (Zofran Inj) 4 mg Q6H PRN IV NAUSEA AND/OR VOMITING; Start at 15:30 Acetaminophen (Tylenol Tab) 650 mg Q6H PRN PO PAIN LEVEL 1-3 OR FEVER Last administered on 02/21/17 09:19; Admin Dose 650 MG; Start 02/20/17 at 15:30 Acetaminophen (Tylenol Supp) 650 mg Q6H PRN [place] PAIN LEVEL 1-3 OR FEVER; Start 02/20/17 at 15:30 Acetaminophen/ Hydrocodone Bitart ([place] (5/325)) 1 tab Q6H PRN PO MODERATE PAIN LEVEL 4-6 Last administered on 02/22/17 08:19; Admin Dose 1 TAB; Start 02/20/17 at 15:30 Acetaminophen/ Hydrocodone Bitart ([place] (5/325)) 2 tab Q6H PRN PO SEVERE PAIN LEVEL 7-10; Start 02/20/17 at 15:30 Morphine Sulfate (morphine) 2 mg Q4H PRN IV SEVERE PAIN LEVEL 7-10; Start at 15:30 Docusate Sodium (Colace) 100 mg Q12H PRN PO CONSTIPATION; Start 02/20/17 at 15 :30 Magnesium Hydroxide (Milk Of Mag) 30 ml DAILY PRN PO CONSTIPATION; Start 02/20 at 15:30 Bisacodyl (Dulcolax Supp) 10 mg DAILY PRN [place] CONSTIPATION; Start 02/20/17 at 15:30 Pantoprazole (Protonix Iv) 40 mg DAILY@06 IV Last administered on 02/22/17 05 :14; Admin Dose 40 MG; Start 02/21/17 at 06:00 Levetiracetam (Keppra) 500 mg BID PO Last administered on 02/22/17 08:22; Admin Dose 500 MG; Start 02/21/17 at 10:30 Assessment/Plan Chief Complaint/Hosp Course Patient is a 61 year old female with history of migraines, back pain, hypertension, hysterectomy continue to [facility] after having witnessed possible seizure. Patient reports no previous history of seizures or any other history of stroke or any previous history of syncope. She reportedly was sitting on her couch when she reportedly "blacked out". She was found by her daughter who stated she found her mother shaking. As such was brought to [facility] for further evaluation.CT scan of the brain showed no intracranial hemorrhage otherwise no remarkable finding. She reported having some mild headache at this time likely postictal. She has no recurrence of similar activity. Examination is nonfocal. She apparently had new onset of seizures. Plan MRI Brain unrevealing EEG pending c/w Keppra seizure precautions abstain from driving up to 6 mo per [employer] state regulations Problems: KINJAL CABRERA MD Feb 22, 2017 13:01
--- NOTE | 2017-02-22 17:47 | PN ---
Date/Time of Note Date/Time of Note DATE: 02/22/17 TIME: 17:46 Assessment/Plan VTE Prophylaxis VTE Prophylaxis Intervention: SCD's Lines/Catheters IV Catheter Type (from Rust): Saline Lock Urinary Cath still in place: No Assessment/Plan Chief Complaint/Hosp Course 1. Possible seizure disorder. Continue Keppra. Neurology following. Brain MRI negative. Pending EEG. Continue seizure precautions. 2. Essential hypertension. History. Blood pressure fairly well controlled off antihypertensives. 3. History of migraine headaches. 4. Chronic back pain. Continue PRN analgesics. 5. Fluids, electrolytes, and nutrition. Regular diet. 6. DVT prophylaxis. Bilateral sequential compression devices. 7. Plan. Continue management as per neurology. Await clearance from neurology before discharge. Case discussed with Dr. Churchill. Problems: Subjective 24 Hr Interval Summary Free Text/Dictation Denies any complaints. Exam/Review of Systems Vital Signs Vitals Vital Signs Date Time Temp Pulse Resp B/P Pulse Ox O2 Delivery O2 Flow Rate FiO2 02/22/17 15:41 98.3 63 18 167/88 98 02/20/17 22:50 Room Air Intake and Output 02/21/17 02/21/17 02/22/17 15:00 23:00 07:00 Intake Total 300 ml 900 ml 400 ml Balance 300 ml 900 ml 400 ml Exam General: Adequately build 61 year-old female lying in bed in no apparent distress. HEENT: Normocephalic, atraumatic. Eyes: Anicteric sclerae, conjunctivae clear. ENT: Nasal septum midline, oral mucosa moist. Neck supple, no JVD noticed. Respiratory: Bilaterally clear breath sounds. No use of accessory muscles of respiration. No adventitious breath sounds. Cardiovascular: S1, S2 heard. No murmurs or gallops. Abdomen: Soft, nontender, and nondistended. Bowel sounds positive in all 4 quadrants. Genitourinary: Deferred. Extremities: No cyanosis, no clubbing, no edema. Peripheral pulses palpable. Neurologic: Cranial nerves II through XII grossly intact. The patient is awake, alert, and oriented. Skin: Normal skin turgor. No skin rashes. Results Result Diagram: 02/21/1721 02/21/17520 Medications Medications Current Medications Ondansetron HCl (Zofran Inj) 4 mg Q6H PRN IV NAUSEA AND/OR VOMITING; Start at 15:30 Acetaminophen (Tylenol Tab) 650 mg Q6H PRN PO PAIN LEVEL 1-3 OR FEVER Last administered on 02/21/17 09:19; Admin Dose 650 MG; Start 02/20/17 at 15:30 Acetaminophen (Tylenol Supp) 650 mg Q6H PRN [place] PAIN LEVEL 1-3 OR FEVER; Start 02/20/17 at 15:30 Acetaminophen/ Hydrocodone Bitart ([place] (5/325)) 1 tab Q6H PRN PO MODERATE PAIN LEVEL 4-6 Last administered on 02/22/17 08:19; Admin Dose 1 TAB; Start 02/20/17 at 15:30 Acetaminophen/ Hydrocodone Bitart ([place] (5/325)) 2 tab Q6H PRN PO SEVERE PAIN LEVEL 7-10; Start 02/20/17 at 15:30 Morphine Sulfate (morphine) 2 mg Q4H PRN IV SEVERE PAIN LEVEL 7-10; Start at 15:30 Docusate Sodium (Colace) 100 mg Q12H PRN PO CONSTIPATION; Start 02/20/17 at 15 :30 Magnesium Hydroxide (Milk Of Mag) 30 ml DAILY PRN PO CONSTIPATION; Start 02/20 at 15:30 Bisacodyl (Dulcolax Supp) 10 mg DAILY PRN [place] CONSTIPATION; Start 02/20/17 at 15:30 Pantoprazole (Protonix Iv) 40 mg DAILY@06 IV Last administered on 02/22/17 05 :14; Admin Dose 40 MG; Start 02/21/17 at 06:00 Levetiracetam (Keppra) 500 mg BID PO Last administered on 02/22/17 08:22; Admin Dose 500 MG; Start 02/21/17 at 10:30 MODESTA BELTRE NP Feb 22, 2017 17:47
--- NOTE | 2017-02-22 17:47 | PN ---
Date/Time of Note Date/Time of Note DATE: 02/22/17 TIME: 17:46 Assessment/Plan VTE Prophylaxis VTE Prophylaxis Intervention: SCD's Lines/Catheters IV [facility]from [facility] Saline Lock Urinary Cath still in place: No Assessment/Plan Chief Complaint/Hosp Course 1. Possible seizure disorder. Continue Keppra. Neurology following. Brain MRI negative. Pending EEG. Continue seizure precautions. 2. Essential hypertension. History. Blood pressure fairly well controlled off antihypertensives. 3. History of migraine headaches. 4. Chronic back pain. Continue PRN analgesics. 5. Fluids, electrolytes, and nutrition. Regular diet. 6. DVT prophylaxis. Bilateral sequential compression devices. 7. Plan. Continue management as per neurology. Await clearance from neurology before discharge. Case discussed with Dr. Churchill. Problems: Subjective 24 Hr Interval Summary Free Text/Dictation Denies any complaints. Exam/Review of Systems Vital Signs Vitals Vital Signs Date Time Temp Pulse Resp B/P Pulse Ox O2 Delivery O2 Flow Rate FiO2 02/22/17 15:41 98.3 63 18 167/88 98 02/20/17 22:50 Room Air Intake and Output 02/21/17 02/21/17 02/22/17 15:00 23:00 07:00 Intake Total 300 ml 900 ml 400 ml Balance 300 ml 900 ml 400 ml Exam General: Adequately build 61 year-old female lying in bed in no apparent distress. HEENT: Normocephalic, atraumatic. Eyes: Anicteric sclerae, conjunctivae clear. ENT: Nasal septum midline, oral mucosa moist. Neck supple, no JVD noticed. Respiratory: Bilaterally clear breath sounds. No use of accessory muscles of respiration. No adventitious breath sounds. Cardiovascular: S1, S2 heard. No murmurs or gallops. Abdomen: Soft, nontender, and nondistended. Bowel sounds positive in all 4 quadrants. Genitourinary: Deferred. Extremities: No cyanosis, no clubbing, no edema. Peripheral pulses palpable. Neurologic: Cranial nerves II through XII grossly intact. The patient is awake, alert, and oriented. Skin: Normal skin turgor. No skin rashes. Results Result Diagram: 02/21/1721 02/21/17520 Medications Medications Current Medications Ondansetron HCl (Zofran Inj) 4 mg Q6H PRN IV NAUSEA AND/OR VOMITING; Start at 15:30 Acetaminophen (Tylenol Tab) 650 mg Q6H PRN PO PAIN LEVEL 1-3 OR FEVER Last administered on 02/21/17 09:19; Admin Dose 650 MG; Start 02/20/17 at 15:30 Acetaminophen (Tylenol Supp) 650 mg Q6H PRN OR PAIN LEVEL 1-3 OR FEVER; Start 02/20/17 at 15:30 Acetaminophen/ Hydrocodone Bitart ([place] (5/325)) 1 tab Q6H PRN PO MODERATE PAIN LEVEL 4-6 Last administered on 02/22/17 08:19; Admin Dose 1 TAB; Start 02/20/17 at 15:30 Acetaminophen/ Hydrocodone Bitart ([place] (5/325)) 2 tab Q6H PRN PO SEVERE PAIN LEVEL 7-10; Start 02/20/17 at 15:30 Morphine Sulfate (morphine) 2 mg Q4H PRN IV SEVERE PAIN LEVEL 7-10; Start at 15:30 Docusate Sodium (Colace) 100 mg Q12H PRN PO CONSTIPATION; Start 02/20/17 at 15 :30 Magnesium Hydroxide (Milk Of Mag) 30 ml DAILY PRN PO CONSTIPATION; Start 02/20 at 15:30 Bisacodyl (Dulcolax Supp) 10 mg DAILY PRN OR CONSTIPATION; Start 02/20/17 at 15:30 Pantoprazole (Protonix Iv) 40 mg DAILY@06 IV Last administered on 02/22/17 05 :14; Admin Dose 40 MG; Start 02/21/17 at 06:00 Levetiracetam (Keppra) 500 mg BID PO Last administered on 02/22/17 08:22; Admin Dose 500 MG; Start 02/21/17 at 10:30 MODESTA BELTRE NP Feb 22, 2017 17:47
[2017-02-23] VITALS (8 sets, daily range): BP systolic 118–132; BP diastolic 70–80; PULSE 56–65; RESP 19–20
[2017-02-23] MEDS: LEVETIRACETAM 500 MG TAB PO SCH (09:06)
--- NOTE | 2017-02-23 11:36 | CONS ---
Date/Time of Note Date/Time of Note DATE: 02/23/17 TIME: 11:35 Consult Date/Type/Reason Admit Date/Time Feb 20, 2017 at 15:40 Initial Consult Date 02/21/17 Type of Consultation: Neurology Reason for Consultation seizure Ordering Provider: IAN WALLS Subjective no further seizures Objective Vital Signs Date Time Temp Pulse Resp B/P Pulse Ox O2 Delivery O2 Flow Rate FiO2 02/23/17 11:20 98.0 65 20 118/80 98 02/20/17 22:50 Room Air Intake and Output 02/22/17 02/22/17 02/23/17 15:00 23:00 07:00 Intake Total 1000 ml 300 ml Balance 1000 ml 300 ml Exam Constitutional: alert, oriented, well developed Psych: nl mood/affect, no complaints Head: atraumatic, normocephalic Eyes: EOMI, nl conjunctiva, nl lids, nl sclera ENMT: mucosa pink and moist, nl external ears & nose, nl lips & teeth, nl nasal mucosa & septum Neck: non-tender, supple Respiratory: clear to auscultation, normal air movement Cardiovascular: nl pulses, regular rate and rhythm Gastrointestinal: nl liver, spleen, non-tender, soft Extremities: normal pulses Neurological: PASTER HAT LINING II-XII intact, nl mental status, nl speech, nl strength Skin: nl turgor Results/Medications Result Diagram: 02/21/1752002/21/17520 Medications Current Medications Ondansetron HCl (Zofran Inj) 4 mg Q6H PRN IV NAUSEA AND/OR VOMITING; Start at 15:30 Acetaminophen (Tylenol Tab) 650 mg Q6H PRN PO PAIN LEVEL 1-3 OR FEVER Last administered on 02/21/17 09:19; Admin Dose 650 MG; Start 02/20/17 at 15:30 Acetaminophen (Tylenol Supp) 650 mg Q6H PRN [place] PAIN LEVEL 1-3 OR FEVER; Start 02/20/17 at 15:30 Acetaminophen/ Hydrocodone Bitart ([place] (5/325)) 1 tab Q6H PRN PO MODERATE PAIN LEVEL 4-6 Last administered on 02/22/17 20:52; Admin Dose 1 TAB; Start 02/20/17 at 15:30 Acetaminophen/ Hydrocodone Bitart ([place] (5/325)) 2 tab Q6H PRN PO SEVERE PAIN LEVEL 7-10 Last administered on 02/23/17 09:06; Admin Dose 2 TAB; Start 02/20 at 15:30 Morphine Sulfate (morphine) 2 mg Q4H PRN IV SEVERE PAIN LEVEL 7-10; Start at 15:30 Docusate Sodium (Colace) 100 mg Q12H PRN PO CONSTIPATION; Start 02/20/17 at 15 :30 Magnesium Hydroxide (Milk Of Mag) 30 ml DAILY PRN PO CONSTIPATION; Start 02/20 at 15:30 Bisacodyl (Dulcolax Supp) 10 mg DAILY PRN [place] CONSTIPATION; Start 02/20/17 at 15:30 Levetiracetam (Keppra) 500 mg BID PO Last administered on 02/23/17 09:06; Admin Dose 500 MG; Start 02/21/17 at 10:30 Assessment/Plan Chief Complaint/Hosp Course Patient is a 61 year old female with history of migraines, back pain, hypertension, hysterectomy continue to [facility] after having witnessed possible seizure. Patient reports no previous history of seizures or any other history of stroke or any previous history of syncope. She reportedly was sitting on her couch when she reportedly "blacked out". She was found by her daughter who stated she found her mother shaking. As such was brought to [facility] for further evaluation.CT scan of the brain showed no intracranial hemorrhage otherwise no remarkable finding. She reported having some mild headache at this time likely postictal. She has no recurrence of similar activity. Examination is nonfocal. She apparently had new onset of seizures. Plan MRI Brain unrevealing c/w Keppra seizure precautions abstain from driving up to 6 mo per [place] state regulations discharge planning Problems: KINJAL CABRERA MD Feb 23, 2017 11:36
--- NOTE | 2017-02-23 11:36 | CONS ---
Date/Time of Note Date/Time of Note DATE: 02/23/17 TIME: 11:35 Consult Date/Type/Reason Admit Date/Time Feb 20, 2017 at 15:40 Initial Consult Date 02/21/17 Type of Consultation: Neurology Reason for Consultation seizure Ordering Provider: IAN WALLS Subjective no further seizures Objective Vital Signs Date Time Temp Pulse Resp B/P Pulse Ox O2 Delivery O2 Flow Rate FiO2 02/23/17 11:20 98.0 65 20 118/80 98 02/20/17 22:50 Room Air Intake and Output 02/22/17 02/22/17 02/23/17 15:00 23:00 07:00 Intake Total 1000 ml 300 ml Balance 1000 ml 300 ml Exam Constitutional: alert, oriented, well developed Psych: nl mood/affect, no complaints Head: atraumatic, normocephalic Eyes: EOMI, nl conjunctiva, nl lids, nl sclera ENMT: mucosa pink and moist, nl external ears & nose, nl lips & teeth, nl nasal mucosa & septum Neck: non-tender, supple Respiratory: clear to auscultation, normal air movement Cardiovascular: nl pulses, regular rate and rhythm Gastrointestinal: nl liver, spleen, non-tender, soft Extremities: normal pulses Neurological: LEATHER FITTER II-XII intact, nl mental status, nl speech, nl strength Skin: nl turgor Results/Medications Result Diagram: 02/21/1752002/21/17520 Medications Current Medications Ondansetron HCl (Zofran Inj) 4 mg Q6H PRN IV NAUSEA AND/OR VOMITING; Start at 15:30 Acetaminophen (Tylenol Tab) 650 mg Q6H PRN PO PAIN LEVEL 1-3 OR FEVER Last administered on 02/21/17 09:19; Admin Dose 650 MG; Start 02/20/17 at 15:30 Acetaminophen (Tylenol Supp) 650 mg Q6H PRN [place] PAIN LEVEL 1-3 OR FEVER; Start 02/20/17 at 15:30 Acetaminophen/ Hydrocodone Bitart ([place] (5/325)) 1 tab Q6H PRN PO MODERATE PAIN LEVEL 4-6 Last administered on 02/22/17 20:52; Admin Dose 1 TAB; Start 02/20/17 at 15:30 Acetaminophen/ Hydrocodone Bitart ([place] (5/325)) 2 tab Q6H PRN PO SEVERE PAIN LEVEL 7-10 Last administered on 02/23/17 09:06; Admin Dose 2 TAB; Start 02/20 at 15:30 Morphine Sulfate (morphine) 2 mg Q4H PRN IV SEVERE PAIN LEVEL 7-10; Start at 15:30 Docusate Sodium (Colace) 100 mg Q12H PRN PO CONSTIPATION; Start 02/20/17 at 15 :30 Magnesium Hydroxide (Milk Of Mag) 30 ml DAILY PRN PO CONSTIPATION; Start 02/20 at 15:30 Bisacodyl (Dulcolax Supp) 10 mg DAILY PRN [place] CONSTIPATION; Start 02/20/17 at 15:30 Levetiracetam (Keppra) 500 mg BID PO Last administered on 02/23/17 09:06; Admin Dose 500 MG; Start 02/21/17 at 10:30 Assessment/Plan Chief Complaint/Hosp Course Patient is a 61 year old female with history of migraines, back pain, hypertension, hysterectomy continue to [facility] after having witnessed possible seizure. Patient reports no previous history of seizures or any other history of stroke or any previous history of syncope. She reportedly was sitting on her couch when she reportedly "blacked out". She was found by her daughter who stated she found her mother shaking. As such was brought to [facility] for further evaluation.CT scan of the brain showed no intracranial hemorrhage otherwise no remarkable finding. She reported having some mild headache at this time likely postictal. She has no recurrence of similar activity. Examination is nonfocal. She apparently had new onset of seizures. Plan MRI Brain unrevealing c/w Keppra seizure precautions abstain from driving up to 6 mo per [place] state regulations discharge planning Problems: KINJAL CABRERA MD Feb 23, 2017 11:36
--- NOTE | 2017-02-23 12:21 | PDOCDIS ---
Discharge Instructions DIAGNOSIS Discharge Diagnosis Seizures. CONDITION Patient Condition: Stable HOME CARE INSTRUCTIONS: Diet Instructions: RegularSpecial Diet: Regular OTHER ORDERS: Other Orders: 1. Take medications as per prescription. 2. Avoid driving until cleared by a neurologist. 3. Follow-up with your primary care physician the next 2 weeks. Please have your primary care physician arrange for outpatient neurology follow. 4. Use caution with activities. Avoid operating powder tools. Avoid climbing ladders, etc. Avoid swimming by yourself. MODESTA BELTRE NP Feb 23, 2017 12:21
[2017-02-23] MEDS ORDERED: HYDR-906 PO (12:26)
[2017-02-23] MEDS ORDERED: LEVE-5 PO (12:26)
--- NOTE | 2017-02-23 13:48 | RADRPT ---
Echocardiogram Report Patient Name: THERESA TAY Gender: Female Date: 1955 Study Date: 22-Feb-2017 Waste Cotton Cleaner: Charo Jones [facility] Location: 521 Ref. Physician: IAN WALLS Quality: Good Procedures: Transthoracic echocardiogram with complete 2D, M-Mode, and doppler examination. Indications: Syncope. 2D/M Mode Doppler Measurement Value Normal Ranges Measurement Value Normal Ranges LVIDd 2D 4.8 3.5 - 5.6 cm AV Peak Salvatore 1.4 m/sec LVIDs 2D 2.2 2.1 - 4.1 cm AV Peak PG 8.4 mmHg LVPWd 2D 1.0 0.6 - 1.1 cm LVOT Peak Salvatore 0.9 m/sec IVSd 2D 0.9 0.6 - 1.1 cm LVOT Peak PG 3.4 mmHg AoR Diam 2D 2.7 2.0 - 3.7 cm MV E Peak Salvatore 0.6 m/sec EDV 2D 107.1 cm3 MV A Peak Salvatore 0.7 m/sec ESV 2D 10.4 cm3 MV E/A 0.8 LA Dimen 2D 3.8 2.3 - 4.0 cm MV Decel Time 188 msec MV Decel Sheridan 3 MV E/A 0.8 TR Peak Salvatore 2.3 m/sec TR Peak PG 21.7 mmHg RVSP 25.0 mmHg Findings Left Ventricle: Normal left ventricular systolic function. Normal left ventricular cavity size. Normal left ventricular wall thickness. Ejection fraction is visually estimated at 6570 %. Tissue Doppler/Mitral Doppler indices are consistent with impaired relaxation (Stage I diastolic dysfunction). Right Ventricle: Normal right ventricular size. Normal right ventricular systolic function. Left Atrium: The left atrium is normal in size. Right Atrium: The right atrium is normal in size. Mitral Valve: Normal appearance and function of the mitral valve with trace physiologic regurgitation. Aortic Valve: Normal appearance of the aortic valve. No significant aortic stenosis or insufficiency. Tricuspid Valve: Normal appearance of the tricuspid valve. Estimated peak PA systolic pressure 25 mmHg. There is mild tricuspid regurgitation. Pulmonic Valve: Pulmonic valve not well visualized. Pericardium: Normal pericardium with no significant pericardial effusion. Aorta: Normal aortic root. IVC: Normal size and normal respiratory collapse consistent with normal right atrial pressure. Conclusions 1.The left ventricle is normal in size and systolic function. 2.Estimated left ventricular ejection fraction of 65-70%. 3.Grade 1 diastolic dysfunction. Electronically Signed By: Ovidio Keys 23-Feb-2017 13:48:08 -0700 Patient Name: THERESA TAY Study Date: 22-Feb-[id number]
--- NOTE | 2017-02-23 13:48 | RADRPT ---
Echocardiogram Report Patient Name: THERESA TAY Gender: Female Date: 1955 Study Date: 22-Feb-2017 Motor Tester: Charo Jones [facility] Location: 521 Ref. Physician: IAN WALLS Quality: Good Procedures: Transthoracic echocardiogram with complete 2D, M-Mode, and doppler examination. Indications: Syncope. 2D/M Mode Doppler Measurement Value Normal Ranges Measurement Value Normal Ranges LVIDd 2D 4.8 3.5 - 5.6 cm AV Peak Salvatore 1.4 m/sec LVIDs 2D 2.2 2.1 - 4.1 cm AV Peak PG 8.4 mmHg LVPWd 2D 1.0 0.6 - 1.1 cm LVOT Peak Salvatore 0.9 m/sec IVSd 2D 0.9 0.6 - 1.1 cm LVOT Peak PG 3.4 mmHg AoR Diam 2D 2.7 2.0 - 3.7 cm MV E Peak Salvatore 0.6 m/sec EDV 2D 107.1 cm3 MV A Peak Salvatore 0.7 m/sec ESV 2D 10.4 cm3 MV E/A 0.8 LA Dimen 2D 3.8 2.3 - 4.0 cm MV Decel Time 188 msec MV Decel Gem 3 MV E/A 0.8 TR Peak Salvatore 2.3 m/sec TR Peak PG 21.7 mmHg RVSP 25.0 mmHg Findings Left Ventricle: Normal left ventricular systolic function. Normal left ventricular cavity size. Normal left ventricular wall thickness. Ejection fraction is visually estimated at 6570 %. Tissue Doppler/Mitral Doppler indices are consistent with impaired relaxation (Stage I diastolic dysfunction). Right Ventricle: Normal right ventricular size. Normal right ventricular systolic function. Left Atrium: The left atrium is normal in size. Right Atrium: The right atrium is normal in size. Mitral Valve: Normal appearance and function of the mitral valve with trace physiologic regurgitation. Aortic Valve: Normal appearance of the aortic valve. No significant aortic stenosis or insufficiency. Tricuspid Valve: Normal appearance of the tricuspid valve. Estimated peak PA systolic pressure 25 mmHg. There is mild tricuspid regurgitation. Pulmonic Valve: Pulmonic valve not well visualized. Pericardium: Normal pericardium with no significant pericardial effusion. Aorta: Normal aortic root. IVC: Normal size and normal respiratory collapse consistent with normal right atrial pressure. Conclusions 1.The left ventricle is normal in size and systolic function. 2.Estimated left ventricular ejection fraction of 65-70%. 3.Grade 1 diastolic dysfunction. Electronically Signed By: Ovidio Keys 23-Feb-2017 13:48:08 -0700 Patient Name: THERESA TAY Study Date: 22-Feb-[id number]
--- NOTE | 2017-02-23 15:08 | SP ---
DATE OF PROCEDURE: 02/22/2017 HISTORY: This is a 61-year-old woman with history of migraine and back pain who was admitted with f ollowing blacked out. EEG is to rule out seizure activity. CURRENT MEDICATIONS: Keppra. PROCEDURE: Utilizing a 16-channel EEG machine, cap scalp electrodes were applied in accordance with International 10-20 system. [id number] and fijne-ty-hiy montages were displayed. Electrical i mpedances were measured and reported. DESCRIPTION: During the resting state, posterior dominant rhythm of about 8-9 Hz were seen bihemisp herically. Photic stimulation had a good response. Hyperventilation was not performed. Blink ruby fact was noted at times during the tracing. There was no focal lateralizing or epileptiform dischar ge identified. INTERPRETATION: This is a normal EEG. A normal EEG does not exclude seizure disorder. Please reema elate clinically. Dictated By: ALMA KOROMA/ADONIS Conf#: [id number] DID#: [id number]
--- NOTE | 2017-02-23 15:08 | SP ---
DATE OF PROCEDURE: 02/22/2017 HISTORY: This is a 61-year-old woman with history of migraine and back pain who was admitted with f ollowing blacked out. EEG is to rule out seizure activity. CURRENT MEDICATIONS: Keppra. PROCEDURE: Utilizing a 16-channel EEG machine, cap scalp electrodes were applied in accordance with International 10-20 system. [id number] and kyltk-[id number] montages were displayed. Electrical i mpedances were measured and reported. DESCRIPTION: During the resting state, posterior dominant rhythm of about 8-9 Hz were seen bihemisp herically. Photic stimulation had a good response. Hyperventilation was not performed. Blink ruby fact was noted at times during the tracing. There was no focal lateralizing or epileptiform dischar ge identified. INTERPRETATION: This is a normal EEG. A normal EEG does not exclude seizure disorder. Please reema elate clinically. Dictated By: ALMA KOROMA/ADONIS Conf#: [id number] DID#: [id number]
--- NOTE | 2017-02-23 15:11 | DS ---
Date/Time of Note Date/Time of Note DATE: 02/23/17 TIME: 15:11 Discharge Summary Admission/Discharge Info Admit Date/Time Feb 20, 2017 at 15:40 Discharge Date/Time Feb 23, 2017 at 13:45 Discharge Diagnosis 1. Seizure disorder. 2. Essential hypertension. Diet controlled. 3. Chronic back pain. 4. History of migraine headaches. Patient Condition: Stable Consults 1. Jemima Live MD, Neurology. 2. Mary Davis MD, Neurology. Procedures Brain CT IMPRESSION: 1. No intracranial hemorrhage. 2. Cavum septum pellucidum, a normal variant. 3. Otherwise unremarkable noncontrast CT scan of the brain. Brain MRI IMPRESSION: 1. No evidence of acute intracranial pathology. 2. Mild chronic small vessel ischemic changes. CXR IMPRESSION: No acute disease. 2D Echocardiogram Conclusions 1. The left ventricle is normal in size and systolic function. 2. Estimated left ventricular ejection fraction of 65-70%. 3. Grade 1 diastolic dysfunction. Hx of Present Illness This is a 61 year old female with history of migraines, back pain, hypertension , hysterectomy who came to [facility] after having a witnessed probable seizure. The patient reported no previous history of seizures or any other history of stroke or any previous history of syncope. She reportedly was sitting on her couch when she reportedly "blacked out". She was found by her daughter who stated she found her mother shaking. As such was brought to [facility] for [facility] evaluation. CT scan of the brain showed no intracranial hemorrhage and no remarkable findings. BMP and CBC otherwise unremarkable. Vital signs remained stable. She reported being in her normal state of health, able to walk and carry out her regular activities of daily living prior to this incident. Hospital Course The patient was admitted to inpatient telemetry floor. A neurology consult was obtained. The patient underwent extensive workup including brain CT scan and brain MRI, both of which were negative for any acute findings. The patient's electroencephalography results are pending at this time. The patient was started on Keppra. The patient was maintained on seizure precautions. The patient had no more episodes of seizure activity. Neurology recommended no driving for at least 6 months. The patient has underlying essential hypertension that is controlled with diet. The patient's blood pressure remained stable throughout her hospital stay. The patient has chronic back pain and she was maintained on analgesics for the same. The patient has a history of chronic migraines. The patient had no episodes of migraines during the patient's hospital course. The patient had a stable hospital course. The patient was cleared by neurology to be discharged home. The patient denied any complaints at the time of discharge. Discharge Instructions 1. Take medications as per prescription. 2. Avoid driving until cleared by a neurologist. 3. Follow-up with your primary care physician the next 2 weeks. Please have your primary care physician arrange for outpatient neurology follow-up. 4. Use caution with activities. Avoid operating powder tools. Avoid climbing ladders, etc. Avoid swimming by yourself. The patient verbalized understanding of her discharge instructions. At this time I would like to thank Dr. Live and Dr. Davis for seeing the patient and providing clinical recommendations. Case discussed with Dr. Churchill. Home Meds Active Scripts Hydrocodone/Acetaminophen ([place] 5-325 Tablet) 1 Each Tablet, 1 EACH PO Q12H for PAIN, #20 TAB Prov:MODESTA BELTRE NP 02/23/17 Levetiracetam* (Keppra*) 500 Mg Tablet, 500 MG PO BID, #60 TAB Prov:MODESTA BELTRE NP 02/23/17 Discontinued Reported Medications Tramadol HCl (Tramadol HCl) 50 Mg Tablet, 50 MG PO BID Y for PAIN, #60 TAB 02/20/17 Hydrocodone Bit-Acetaminophen* ([place]*) 1 Tab Tab 07/31/09 Discontinued Scripts Acetaminophen-Codeine* (Acetaminophen-Cod #3*) 300-30 Mg Tab, 1 TAB PO Q4H Y for PAIN, #14 TAB Prov:BONITA AGUILAR MD 03/03/15 Ibuprofen* (Motrin*) 600 Mg Tab, 600 MG PO Q6, #20 TAB Prov:BONITA AGUILAR MD 03/03/15 Follow-up Plan Follow-up with your primary care physician in the next 2 weeks. Have your primary care physician arrange for outpatient neurology follow-up. Primary Care Provider Not On Staff Doctor Time spent on discharge: > 30 minutes MODESTA BELTRE NP Feb 23, 2017 15:11
== END 2017-02-23 13:45 | disposition home or self-care (01) | DRG 101 ==
LOC: E/R 11:22 → MS3 15:40 → TEL 22:50
PROVIDERS: ADMIT Internal Medicine; ATTEND Internal Medicine
DX: G40.909 Epilepsy, unspecified, not intractable, without status epilepticus (principal); I10 Essential (primary) hypertension; G89.29 Other chronic pain; M54.9 Dorsalgia, unspecified
CPT/HCPCS: 36415; 70450; 70551; 71010; 80048; 80053; 80061; 80306; 83036; 83735; 84100; 84436; 84443; 84479; 84484; 85025; 85610; 85730; 93005; 93306; 95819; 96374; C9113; J2060; J7040

== ENCOUNTER 2017-03-16 07:30 | Emergency (ER) | payer OTHER ==
[~2017-03-16] VITALS: Wt 73.0 kg
[~2017-03-16 07:30] MED LIST changes: -ACET1TAB40 PO; -HYDR-3612; +HYDR-906 PO; -IBUP-1542 PO; +LEVE-5 PO
[2017-03-16] MEDS ORDERED: AMOX500C2 PO (07:44)
[2017-03-16] MEDS ORDERED: IBUP-1542 PO (07:44)
[2017-03-16] MEDS ORDERED: CETI10CA PO (07:44)
--- NOTE | 2017-03-16 07:50 | ERD ---
ER Documentation Chief Complaint Chief Complaint r. earache HPI 61 year old female comes in with right ear pain x 2 days, she describes it as inner ear pain, that is achy, mild, localized pain. She has tried applying eardrops that were [id number] for this. She has no difficulty hearing, dizziness, headaches.. She has not had any fevers or chills, otorrhea or trauma. ROS All systems reviewed and are negative except as per history of present illness. Medications Home Meds Active Scripts Ibuprofen* (Motrin*) 600 Mg Tab, 600 MG PO Q6, #30 TAB Prov:NOE KAUR PA-C 03/16/17 Amoxicillin* (Amoxicillin*) 500 Mg Cap, 500 MG PO TID for 7 Days, CAP Prov:NOE KAUR PA-C 03/16/17 Cetirizine Hcl* (Zyrtec*) 10 Mg Capsule, 10 MG PO DAILY, #10 TAB.CHEW Prov:NOE KAUR PA-C 03/16/17 Hydrocodone/Acetaminophen ([place] 5-325 Tablet) 1 Each Tablet, 1 EACH PO Q12H for PAIN, #20 TAB Prov:MODESTA BELTRE NP 02/23/17 Levetiracetam* (Keppra*) 500 Mg Tablet, 500 MG PO BID, #60 TAB Prov:MODESTA BELTRE NP 02/23/17 Allergies Allergies: Coded Allergies: No Known Allergies (Verified Allergy, Mild, 02/20/17) PMhx/Soc History of Surgery: Yes (ankle, hysterectomy, carpal tunnel.) Anesthesia Reaction: No Hx Neurological Disorder: No Hx Respiratory Disorders: No Hx Cardiac Disorders: Yes (HTN) Hx Psychiatric Problems: No Hx Miscellaneous Medical Probl: No Hx Alcohol Use: No Hx Substance Use: No Hx Tobacco Use: No Smoking Status: Never smoker Physical Exam Vitals Vital Signs Date Time Temp Pulse Resp B/P Pulse Ox O2 Delivery O2 Flow Rate FiO2 03/16/17 07:31 98.4 94 20 138/93 99 Physical Exam General: Well-developed, well-nourished. The patient appears in no acute distress. HEENT: Head is normocephalic, atraumatic. No scleral icterus. TM is fullness on the right ear but no erythema or drainage, perforation, mastoids are nontender, right ear is normal. Neck: Supple. Nontender. Lungs: Clear to auscultation. Normal air movement. Heart: Regular rate and rhythm. S1 and S2 are normal. No murmurs, gallops, or rubs. Abdomen: Nondistended. Extremities: No clubbing or cyanosis. Moving extremities x 4. No weakness. Neurologic: Alert and oriented 3. No focal deficits. Normal speech and gait. Skin: Normal turgor. No rash or lesions. Procedures/MDM 61-year-old female comes in with right ear otalgia, patient's differential diagnosis includes early otitis media, mastoiditis, tympanic membrane perforation, foreign body, cellulitis, otosclerosis, and among others. Patient describes achy pain in the inner ear, there is fullness, the patient will be given ibuprofen and Zyrtec to start. If symptoms do not improve, she will be given amoxicillin. I discussed with the patient that this may be an early otitis media that is not present on examination at this time, as patient patient 's pain does not improve that she may take the antibiotics. Patient's blood pressure was elevated (>120/80) but appears stable without evidence of hypertension emergency or urgency. The patient was counseled about the risks of hypertension and urged to pursue outpatient monitoring and therapy within a week with their primary care physician. Departure Diagnosis: Primary Impression: Right ear pain Condition: Good Patient Instructions: Earache W/O Infection (Adult) Additional Instructions: Call your primary care doctor TOMORROW for an appointment during the next 1-2 days.See the doctor sooner or return here if your condition worsens before your appointment time. NOE KAUR PA-C Mar 16, 2017 07:50
== END 2017-03-16 08:04 | disposition home or self-care (01) ==
LOC: FTE 07:30
DX: H92.01 Otalgia, right ear (principal); I10 Essential (primary) hypertension
CPT/HCPCS: 99283

== ENCOUNTER 2017-08-31 12:32 | Emergency (ER) | END 2017-08-31 17:40 | disposition home or self-care (01) ==